=== PATIENT | female | born 1985 | race Caucasian/White ===

== ENCOUNTER → 2017-07-10 | Outpatient (CLI) | payer OTHER ==
--- NOTE | 2017-07-10 14:11 | US ---
EXAMINATION TYPE: US thyroid st tissue head/neck DATE OF EXAM: 07/10/2017 COMPARISON: NONE CLINICAL HISTORY: 32-year-old female E01.1 thyromegaly,R53.83 FATIGUE. TECHNIQUE: Multiple sonographic images of the thyroid gland are obtained. FINDINGS: GLAND SIZE: Right Lobe: 5.7 x 1.7 x 1.7 cm Overall Parenchyma: homogenous Left Lobe: 5.1 x 1.3 x 1.7 cm Overall Parenchyma: homogeneous Isthmus Thickness: 0.4 cm NODULES RIGHT: # of nodules measured on right: 1 1. 1.4 X 0.7 x 1.2 cm mixed, primarily solid nodule at the mid pole with well-defined margins. Thi s nodule is wider than tall and shows intranodular vascularity. Prior size: no prior here LEFT: # of nodules measured on left: 1 1. 0.6 X 0.5 x 0.4 cm hypoechoic solid nodule at the lower pole with well-defined margins. This no dule is wider than tall and shows no intranodular vascularity. Prior size: no prior here ISTHMUS: # of nodules measured in the isthmus: 0 Bilateral neck scanned, no evidence of lymphadenopathy. IMPRESSION: A nodule on each side. The larger nodule is on the right and measures 1.4 cm. It is primarily solid w ith internal vascularity. FNA can be considered. The left-sided nodule measures 6 mm.
== END | disposition home or self-care (01) ==
LOC: RADUSWWP 11:56
PROVIDERS: ATTEND Internal Medicine
DX: E04.2 Nontoxic multinodular goiter (principal); R53.83 Other fatigue
CPT/HCPCS: 76536

== ENCOUNTER 2018-04-05 09:20 | Day surgery (SDC) | payer OTHER ==
[2018-04-05 09:44] VITALS: RESP 16; TEMP 97.8
[2018-04-05] MEDS ORDERED: ALPRAZolam 0.5 MG TAB PO STA (09:47)
[2018-04-05 11:24] VITALS: BP 121/71; PULSE 88
--- NOTE | 2018-04-05 13:59 | US ---
EXAMINATION TYPE: US FNA thyroid first lesion DATE OF EXAM: 04/05/2018 COMPARISON: NONE HISTORY: Thyroid nodule. Maximal barrier technique was utilized. After informed consent, skin overlying the lesion was locali zed with ultrasound and the overlying skin prepped and draped. Ultrasound was utilized using sterile technique. Lidocaine was used for local anesthesia. Five passes with a 25-gauge needle were made int o the right thyroid nodule and aspirated specimen was submitted to cytology. Following the procedure hemostasis achieved. No immediate complication. The patient discharged in stable condition. IMPRESSION: STATUS POST ULTRASOUND GUIDED FINE NEEDLE ASPIRATION OF THYROID NODULE, PATHOLOGY IS PEND ING. THIS PROCEDURE WAS PERFORMED BY THE UNDERSIGNED.
== END 2018-04-05 11:21 | disposition home or self-care (01) ==
LOC: RADPROMAIN 09:20
PROVIDERS: ATTEND Nurse Practitioner Adult Health
DX: E04.1 Nontoxic single thyroid nodule (principal)
CPT/HCPCS: 10005; 76942; 88173; 88305

== ENCOUNTER → 2020-06-04 | Outpatient (CLI) | payer OTHER ==
--- NOTE | 2020-06-05 12:16 | US ---
EXAMINATION TYPE: US transvaginal DATE OF EXAM: 06/04/2020 COMPARISON: NONE CLINICAL HISTORY: 35-year-old female N83.0 Right Ovarian Cyst. TECHNIQUE: Transvaginal (TV). Date of LMP: 05-21-20 FINDINGS: EXAM MEASUREMENTS: Uterus: 9.0 x 3.9 x 4.6 cm Endometrial Stripe: 0.9 cm Right Ovary: 2.5 x 2.1 x 2.2 cm Left Ovary: Obscured by overlying bowel gas Water Taxi Operator notes: Patient unable to fill bladder. 1. Uterus: Anteverted and otherwise wnl. Tiny 3 mm cervical nabothian cyst. 2. Endometrium: wnl 3. Right Ovary: dominant follicle measuring 1.9 x 1.4 x 1.4cm 4. Left Ovary: Obscured by overlying bowel gas 5. Bilateral Adnexa: wnl 6. Posterior cul-de-sac: wnl IMPRESSION: 1. Unable to visualize the left ovary due to bowel gas and the adnexa. 2. A 1.9 cm dominant follicle in the right ovary.
== END | disposition home or self-care (01) ==
LOC: RADUSWWP 15:58
PROVIDERS: ATTEND Obstetrics & Gynecology
DX: N83.201 Unspecified ovarian cyst, right side (principal)
CPT/HCPCS: 76830

== ENCOUNTER 2023-01-07 11:39 | Emergency (ER) | payer BC, OTHER ==
[2023-01-07] MEDS ORDERED: DIPH,PERTUS(ACELL)TETVAC-LF 0.5 ML VIAL IM ONE (12:07)
[2023-01-07] MEDS ORDERED: TOPICAL SKIN ADHESIVE 1 EACH AMP TOPICAL ONE (12:08)
--- NOTE | 2023-01-07 12:22 | ED ---
General Adult HPI - General Chief complaint: Wound/Laceration Stated complaint: left pinkie toe injury Time Seen by Provider: 01/07/23 12:01 Source: patient, RN notes reviewed Mode of arrival: ambulatory Limitations: no limitations - History of Present Illness Initial comments: 37-year-old female presents to the emergency department with chief complaint of toe injury. Discussed with her left fifth toe. She states that she was running around with her kids last night when she hit her toe on the bookshelf at her house. She states her last tetanus shot was around 11 years ago. She states that it is not significantly painful. She denies any numbness, tingling. - Related Data Home Medications Medication Instructions Recorded Confirmed Levothyroxine Sodium [Synthroid] 75 mcg PO DAILY 03/01/21 03/01/21 Venlafaxine HCl ER [Effexor Xr] 75 mg PO DAILY 03/01/21 03/01/21 Previous Rx's Medication Instructions Recorded Ondansetron Odt [Zofran Odt] 4 mg PO Q8HR PRN #10 tab 03/01/21 Cephalexin [Keflex] 500 mg PO Q6HR #28 cap 01/07/23 Allergies Allergy/AdvReac Type Severity Reaction Status Date / Time No Known Allergies Allergy Verified 01/07/23 11:50 Review of Systems ROS Statement: Those systems with pertinent positive or pertinent negative responses have been documented in the HPI. ROS Other: All systems not noted in ROS Statement are negative. Past Medical History Past Medical History: Thyroid Disorder Additional Past Medical History / Comment(s): hx thyroid cyst, tx radioactive iodine, pain with swallowing, multiple nodules, hx kidney stone History of Any Multi-Drug Resistant Organisms: None Reported Past Surgical History: No Surgical Hx Reported Additional Past Surgical History / Comment(s): lithotripsy Past Anesthesia/Blood Transfusion Reactions: No Reported Reaction Past Psychological History: No Psychological Hx Reported Smoking Status: Never smoker Past Alcohol Use History: Rare Past Drug Use History: None Reported - Past Family History Mother Family Medical History: No Reported History General Exam Limitations: no limitations General appearance: alert, in no apparent distress Head exam: Present: atraumatic, normocephalic, normal inspection Eye exam: Present: normal appearance, PERRL, EOMI. Absent: scleral icterus, conjunctival injection, periorbital swelling ENT exam: Present: normal exam, mucous membranes moist Neck exam: Present: normal inspection. Absent: tenderness, meningismus, lymphadenopathy Course Vital Signs 01/07/23 01/07/23 11:46 14:01 Temperature 98.6 F 98.2 F Pulse Rate 104 H 79 Respiratory 20 18 Rate Blood Pressure 132/94 121/89 O2 Sat by Pulse 98 98 Oximetry Medical Decision Making - Medical Decision Making Was pt. sent in by a medical professional or institution (, PA, FIELD ARTILLERY RADAR OPERATOR, urgent care, hospital, or correction...) When possible be specific @ -No Did you speak to anyone other than the patient for history (EMS, parent, family, police, friend...)? What history was obtained from this source @ -No Did you review nursing and triage notes (agree or disagree)? Why? @ -I reviewed and agree with nursing and triage notes Were old charts reviewed (outside hosp., previous admission, EMS record, old EKG, old radiological studies, urgent care reports/EKG's, correction records)? Report findings @ -No old charts were reviewed Differential Diagnosis (chest pain, altered mental status, abdominal pain women, abdominal pain men, vaginal bleeding, weakness, fever, dyspnea, syncope, headache, dizziness, GI bleed, back pain, seizure, CVA, palpatations, mental health, musculoskeletal)? @ -Differential Musculoskeletal Muscular strain, contusion, ligament sprain, fracture, arthritis, septic arthritis, bursitis, cellulitis, muscle spasm, nerve compression, DVT, arterial occlusion, herpes zoster, electrolyte abnormality, tumor.... This is not meant to be in all inclusive list EKG interpreted by me (3pts min.). @ -none X-rays interpreted by me (1pt min.). @ -X-ray left toes shows oblique intra-articular fracture of the medial base of the fifth proximal phalanx CT interpreted by me (1pt min.). @ -None done U/S interpreted by me (1pt. min.). @ -None done What testing was considered but not performed or refused? (CT, X-rays, U/S, lab s)? Why? @ -None What meds were considered but not given or refused? Why? @ -None Did you discuss the management of the patient with other professionals (professionals i.e. , JEZ, FIELD ARTILLERY RADAR OPERATOR, lab, RT, psych nurse, sexual assault social worker, skein drier, teacher, health officer, bottle caser)? Give summary @ -No Was smoking cessation discussed for >3mins.? @ -No Was critical care preformed (if so, how long)? @ -No Were there social determinants of health that impacted care today? How? (Homelessness, low income, unemployed, alcoholism, drug addiction, transportation, low edu. Level, literacy, decrease access to med. care, care home, rehab)? @ -No Was there de-escalation of care discussed even if they declined (Discuss DNR or withdrawal of care, Hospice)? DNR status @ -No What co-morbidities impacted this encounter? (DM, HTN, Smoking, COPD, CAD, Cancer, CVA, ARF, Chemo, Hep., AIDS, mental health diagnosis, sleep apnea, morbid obesity)? @ -None Was patient admitted / discharged? Hospital course, mention meds given and route, prescriptions, significant lab abnormalities, going to OR and other pertinent info. @ -Charge. Patient presented to the emergency department with chief complaint of toe injury. She does have a wound between her fourth and fifth digits of her left foot which is around 0.5 cm. This injury occurred around 15 hours ago and therefore will not be closed with sutures. The wound was irrigated and dressed. X-ray of the toe shows Oblique intra-articular fracture of the medial base of the fifth proximal phalanx. Patient will be started on prophylactic antibiotics. Toes were robbin taped. Instructed to follow-up with orthopedics. Patient's tetanus vaccination was updated. Patient agreeable and understanding with plan. Patient stable at discharge. Case discussed with Dr. Degroot. Undiagnosed new problem with uncertain prognosis? @ -No Drug Therapy requiring intensive monitoring for toxicity (Heparin, Nitro, Insulin, Cardizem)? @ -No Were any procedures done? @ -No Diagnosis/symptom? @ -Fifth toe fracture Acute, or Chronic, or Acute on Chronic? @ -Acute Uncomplicated (without systemic symptoms) or Complicated (systemic symptoms)? @ -Uncomplicated Side effects of treatment? @ -No Exacerbation, Progression, or Severe Exacerbation? @ -No Poses a threat to life or bodily function? How? (Chest pain, [place], [place], pneumonia, PE, COPD, DKA, ARF, appy, cholecystitis, CVA, Diverticulitis, Homicidal, Suicidal, threat to staff... and all critical care pts) @ -No Disposition Clinical Impression: Fracture of fifth toe, left, open Disposition: HOME SELF-CARE Condition: Stable Instructions (If sedation given, give patient instructions): Toe Fracture (ED) Additional Instructions: Please follow up with your primary care provider and orthopedics. Return to the emergency department for new or worsening symptoms. Prescriptions: Cephalexin [Keflex] 500 mg PO Q6HR #28 cap Is patient prescribed a controlled substance at d/c from ED?: No Referrals: Michele Javier [Primary Care Provider] - 1-2 days Jovanny Flores MD [STAFF PHYSICIAN] - 1-2 days
--- NOTE | 2023-01-07 13:08 | XR ---
EXAMINATION TYPE: XR toes LT DATE OF EXAM: 01/07/2023 COMPARISON: NONE HISTORY: 37-year-old female fifth toe injury, pain, swelling, bruising. TECHNIQUE: 3 views coned down left fifth toe FINDINGS: Oblique fracture medial base of the fifth proximal phalanx. 1.5 mm of separation. Intra-articular ext ension to the fifth MTP joint. No significant articular surface incongruity. IMPRESSION: Oblique intra-articular fracture medial base of the fifth proximal phalanx. 1.5 mm of bony separation .
[2023-01-07] MEDS ORDERED: CEPHALEXIN 500 MG CAP PO STA (13:19)
[2023-01-07 14:09] VITALS: BP 121/89; PULSE 79; RESP 18; TEMP 98.2
== END 2023-01-07 14:05 | disposition home or self-care (01) ==
LOC: EC 11:39
DX: E07.9 Disorder of thyroid, unspecified (principal); S92.512B Displaced fracture of proximal phalanx of left lesser toe(s), initial encounter for open fracture; Z79.890 Hormone replacement therapy; Z23 Encounter for immunization; W22.8XXA Striking against or struck by other objects, initial encounter; Y93.02 Activity, running
CPT/HCPCS: 90471; 90715; 99283